=== PATIENT | female | born 1980 | race Two or more races ===

== ENCOUNTER 2023-07-16 13:35 | Emergency (ER) | payer MEDICAID, OTHER ==
[~2023-07-16] VITALS: Ht 170.2 cm; Wt 70.3 kg
[2023-07-16 14:32] VITALS: TEMP 98.3
[2023-07-16] MEDS ORDERED: CYCL5TAB PO (19:44)
[2023-07-16] MEDS ORDERED: KETO10TA2 PO (19:44)
[2023-07-16 20:11] VITALS: BP 138/80; O2SAT 97
== END 2023-07-16 20:12 | disposition home or self-care (01) ==
LOC: ER 14:26
DX: M25.512 Pain in left shoulder (principal); I10 Essential (primary) hypertension; Z79.899 Other long term (current) drug therapy; V49.9XXA Car occupant (driver) (passenger) injured in unspecified traffic accident, initial encounter; Y93.89 Activity, other specified; Y92.89 Other specified places as the place of occurrence of the external cause; Y99.8 Other external cause status
CPT/HCPCS: 73030-TC